=== PATIENT | female | born 1940 | race Caucasian/White ===

== ENCOUNTER 2018-04-21 11:54 | Emergency (ER) | payer MEDICARE ==
[~2018-04-21] VITALS: Ht 157.5 cm; Wt 54.6 kg
[2018-04-21 12:39] LABS: BASOPHILS # (AUTO) 0.04 x10^3/uL (0-0.1); BASOPHILS % (AUTO) 1 % (0-1); EOSINOPHILS % (AUTO) 2 % (1-7); LYMPHOCYTES # (AUTO) 1.91 x10^3/uL (1-3.4); LYMPHOCYTES % (AUTO) 30 % (22-44); MD NO; MEAN CORPUSCULAR HEMOGLOBIN 29.6 pg (27.0-34.8); MEAN CORPUSCULAR HGB CONC 33.6 g/dL (32.4-35.8); MONOCYTES # (AUTO) 0.69 x10^3/uL (0.2-0.8); MONOCYTES % (AUTO) 11 % (2-9); NEUTROPHILS # (AUTO) 3.72 x10^3/uL (1.8-6.8); NEUTROPHILS % (AUTO) 58 % (42-75); PLATELET COUNT 312 x10^3/uL (130-400); RED BLOOD COUNT 5.35 x10^6/uL (3.82-5.3); RED CELL DISTRIBUTION WIDTH 14.8 % (9.6-15.2)
[2018-04-21 14:13] VITALS: BP 129/95
[2018-04-21 14:24] LABS: MICROSCOPIC INDICATED
== END 2018-04-21 15:09 | disposition home or self-care (01) ==
LOC: ED 15:00
DX: N81.4 Uterovaginal prolapse, unspecified (principal); N30.00 Acute cystitis without hematuria
CPT/HCPCS: 36415; 76830; 81001; 85025; 99285